=== PATIENT | female | born 1980 | race Caucasian/White ===

== ENCOUNTER → 2016-06-30 | Outpatient (CLI) | payer BC ==
--- NOTE | 2016-06-30 14:27 | REP ---
PELVIC SONOGRAM: HISTORY: Dysmenorrhea. FINDINGS: Transabdominal and transvaginal scanning are performed. Uterus is rather enlarged at 11.8 x 7.0 x 8.2 cm in overall dimension. Endometrium is obscured. Fibroid is seen measuring 4.3 x 4.2 x 3.5 cm. Remainder the myometrium is heterogeneous. Nabothian cysts are noted. Visualized bladder franco are smooth. Normal ovaries are seen bilaterally. Right ovary dimensions are 3.3 x 1.8 x 2.1 cm. Left ovary measures 2.2 x 1.8 x 2.1 cm. Doppler flow is normal both ovaries. IMPRESSION: Enlarged fibroid uterus. 4.3 cm fibroid in the fundus anteriorly. Endometrium is obscured. No ovarian abnormality seen. Signed by Dwayne Ruano MD 06/30/2016 03:34 P
== END ==
LOC: M RAD 11:37
PROVIDERS: ATTEND Nurse Practitioner Women's Health
DX: N92.0 Excessive and frequent menstruation with regular cycle (principal); N94.4 Primary dysmenorrhea; D25.9 Leiomyoma of uterus, unspecified

== ENCOUNTER → 2016-11-12 | Outpatient (CLI) | payer BC, OTHER, SELFPAY ==
[2016-11-12 13:22] LABS: MEAN CORPUSCULAR HGB CONC 33.7 g/dl (32.0-36.5); MEAN CORPUSCULAR VOLUME 94.8 fl (80.0-96.0); RED CELL DISTRIBUTION WIDTH 13.4 % (11.5-14.5); WHITE BLOOD COUNT 6.2 K/mm3 (4.0-10.0)
[2016-11-12 14:02] LABS: ALBUMIN 3.7 GM/DL (3.2-5.2); ALBUMIN/GLOBULIN RATIO 1.09 (1.00-1.93); ALKALINE PHOSPHATASE 61 U/L (45-117); ALT/SGPT 36 U/L (12-78); ANION GAP 7 MEQ/L (8-16); AST/SGOT 12 U/L (15-37); BILIRUBIN,TOTAL 0.1 MG/DL (0.2-1.0); BLOOD UREA NITROGEN 16 MG/DL (7-18); CALCIUM LEVEL 8.8 MG/DL (8.5-10.1); CARBON DIOXIDE LEVEL 28 MEQ/L (21-32); CHLORIDE LEVEL 105 MEQ/L (98-107); CHOLESTEROL LEVEL 195 MG/DL (<200); CREATININE FOR GFR 0.67 MG/DL (0.55-1.02); GLOMERULAR FILTRATION RATE > 60.0 (>60); GLUCOSE, FASTING 85 MG/DL (70-105); POTASSIUM SERUM 4.6 MEQ/L (3.5-5.1); SODIUM LEVEL 140 MEQ/L (136-145); TOTAL PROTEIN 7.1 GM/DL (6.4-8.2); TRIGLYCERIDES LEVEL 306 MG/DL (<150)
== END ==
LOC: M WUC 10:27
PROVIDERS: ATTEND Family Medicine
DX: D64.9 Anemia, unspecified (principal); E03.9 Hypothyroidism, unspecified

== ENCOUNTER → 2018-01-04 | Outpatient (CLI) | payer OTHER | LOC: M EKG 14:10 | DX: R00.0 Tachycardia, unspecified (principal); J21.9 Acute bronchiolitis, unspecified | CPT/HCPCS: 71046 ==

== ENCOUNTER → 2018-02-02 | Outpatient (CLI) | payer OTHER | LOC: M WUC 18:03 | DX: R05 Cough (principal) | CPT/HCPCS: 71046 ==

== ENCOUNTER → 2018-08-30 | Outpatient (CLI) | payer OTHER ==
[2018-08-30 17:19] LABS: HEMATOCRIT 42.8 % (36.0-47.0); HEMOGLOBIN 14.3 g/dl (12.0-15.5); MEAN CORPUSCULAR HEMOGLOBIN 31.8 pg (27.0-33.0); MEAN CORPUSCULAR HGB CONC 33.4 g/dl (32.0-36.5); MEAN CORPUSCULAR VOLUME 95.1 fl (80.0-96.0); PLATELET COUNT, AUTOMATED 254 10^3/uL (150-450); WHITE BLOOD COUNT 7.4 10^3/uL (4.0-10.0)
[2018-08-30 17:50] LABS: HEMOGLOBIN A1c 5.6 %
[2018-08-30 18:07] LABS: ALBUMIN 3.9 GM/DL (3.2-5.2); ALT/SGPT 34 U/L (12-78); BILIRUBIN,TOTAL 0.3 MG/DL (0.2-1.0); BLOOD UREA NITROGEN 17 MG/DL (7-18); CALCIUM LEVEL 8.7 MG/DL (8.5-10.1); CARBON DIOXIDE LEVEL 27 MEQ/L (21-32); CHLORIDE LEVEL 106 MEQ/L (98-107); CHOLESTEROL LEVEL 174 MG/DL (<200); CHOLESTEROL RISK RATIO 4.142 (<5); CREATININE FOR GFR 0.64 MG/DL (0.55-1.30); GLOMERULAR FILTRATION RATE > 60.0 (>60); GLUCOSE, FASTING 86 MG/DL (70-100); HDL CHOLESTEROL 42 MG/DL (>40); LDL CHOLESTEROL 120 MG/DL (<100); NON-HDL-C 132 MG/DL; POTASSIUM SERUM 4.7 MEQ/L (3.5-5.1); SODIUM LEVEL 140 MEQ/L (136-145); THYROID STIMULATING HORMONE 0.815 uIU/ML (0.358-3.740); TOTAL T3 104.3 NG/DL (60.0-181.0); TRIGLYCERIDES LEVEL 61 MG/DL (<150)
== END ==
LOC: M WUC 14:39
PROVIDERS: ATTEND Family Medicine
DX: D64.9 Anemia, unspecified (principal); E03.9 Hypothyroidism, unspecified; R53.83 Other fatigue

== ENCOUNTER → 2019-04-11 | Outpatient (CLI) | payer OTHER ==
[2019-04-11 16:20] LABS: BASO % 0.5 % (0.0-1.0); EOS # 0.1 10^3/uL (0.0-0.5); EOS % 1.7 % (0.0-3.0); LYMPH # 1.9 10^3/uL (1.5-5.0); LYMPH % 29.3 % (24.0-44.0); MEAN CORPUSCULAR HEMOGLOBIN 32.5 pg (27.0-33.0); MEAN CORPUSCULAR HGB CONC 33.3 g/dl (32.0-36.5); MEAN CORPUSCULAR VOLUME 97.6 fl (80.0-96.0); MONO # 0.7 10^3/uL (0.0-0.8); MONO % 10.6 % (0.0-5.0); NEUTROPHILS # 3.7 10^3/uL (1.5-8.5); NEUTROPHILS % 56.8 % (36.0-66.0); PLATELET COUNT, AUTOMATED 280 10^3/uL (150-450); RED BLOOD COUNT 4.61 10^6/uL (4.00-5.40); WHITE BLOOD COUNT 6.6 10^3/uL (4.0-10.0)
[2019-04-11 16:27] LABS: ALBUMIN 4.1 GM/DL (3.2-5.2); ALT/SGPT 43 U/L (12-78); BILIRUBIN,TOTAL 0.3 MG/DL (0.2-1.0); BLOOD UREA NITROGEN 18 MG/DL (7-18); CALCIUM LEVEL 9.3 MG/DL (8.5-10.1); CARBON DIOXIDE LEVEL 29 MEQ/L (21-32); CHLORIDE LEVEL 103 MEQ/L (98-107); CREATININE FOR GFR 0.79 MG/DL (0.55-1.30); GLOMERULAR FILTRATION RATE > 60.0 (>60); GLUCOSE, FASTING 132 MG/DL (70-100); LIPASE 123 U/L (73-393); POTASSIUM SERUM 3.9 MEQ/L (3.5-5.1); SODIUM LEVEL 139 MEQ/L (136-145); TOTAL PROTEIN 7.8 GM/DL (6.4-8.2)
== END ==
LOC: M WUC 14:15
PROVIDERS: ATTEND Physician Assistant
DX: R10.9 Unspecified abdominal pain (principal)

== ENCOUNTER → 2019-04-11 | Outpatient (REF) | payer OTHER | LOC: M LAB REF 16:05 | PROVIDERS: ATTEND Physician Assistant | DX: R10.9 Unspecified abdominal pain (principal) ==

== ENCOUNTER → 2019-04-14 | Outpatient (CLI) | payer OTHER ==
--- NOTE | 2019-04-14 09:12 | REP ---
Clinical: Right upper quadrant pain. Technique: Real time blanco scale ultrasound examination using curved array transducer. Findings: Liver demonstrates increased echotexture with poor through transmission suggesting fatty infiltration. Focal fatty sparing surrounding the gallbladder fossa noted. No focal hepatic lesion identified. Gallbladder is normal and without gallstones, wall thickening, or pericholecystic fluid. No biliary ductal dilatation is appreciated and the common bile duct measures 6 mm diameter. Right kidney is normal in reniform shape without hydronephrosis and measures 11.7 x 4.7 x 4.7 cm. No ascites. Impression: Hepatic steatosis. Electronically Signed by Thomas Nolasco MD 04/14/2019 09:03 A
== END ==
LOC: M RAD 07:39
PROVIDERS: ATTEND Physician Assistant
DX: R10.811 Right upper quadrant abdominal tenderness (principal); K76.0 Fatty (change of) liver, not elsewhere classified

== ENCOUNTER → 2019-08-31 | Outpatient (CLI) | payer OTHER ==
[2019-08-31 14:22] LABS: HEMATOCRIT 44.2 % (36.0-47.0); HEMOGLOBIN 14.7 g/dl (12.0-15.5); MEAN CORPUSCULAR HEMOGLOBIN 31.8 pg (27.0-33.0); MEAN CORPUSCULAR HGB CONC 33.3 g/dl (32.0-36.5); MEAN CORPUSCULAR VOLUME 95.7 fl (80.0-96.0); PLATELET COUNT, AUTOMATED 240 10^3/uL (150-450); RED BLOOD COUNT 4.62 10^6/uL (4.00-5.40); WHITE BLOOD COUNT 4.9 10^3/uL (4.0-10.0)
[2019-08-31 14:41] LABS: HEMOGLOBIN A1c 5.7 %
[2019-08-31 14:51] LABS: ALBUMIN 3.9 GM/DL (3.2-5.2); ALT/SGPT 33 U/L (12-78); BILIRUBIN,TOTAL 0.5 MG/DL (0.2-1.0); BLOOD UREA NITROGEN 13 MG/DL (7-18); CALCIUM LEVEL 8.9 MG/DL (8.5-10.1); CARBON DIOXIDE LEVEL 29 MEQ/L (21-32); CHLORIDE LEVEL 107 MEQ/L (98-107); CHOLESTEROL LEVEL 185 MG/DL (<200); CHOLESTEROL RISK RATIO 4.204 (<5); CREATININE FOR GFR 0.76 MG/DL (0.55-1.30); GLOMERULAR FILTRATION RATE > 60.0 (>60); GLUCOSE, FASTING 90 MG/DL (70-100); HDL CHOLESTEROL 44 MG/DL (>40); LDL CHOLESTEROL 120 MG/DL (<100); NON-HDL-C 141 MG/DL; POTASSIUM SERUM 4.2 MEQ/L (3.5-5.1); SODIUM LEVEL 141 MEQ/L (136-145); TRIGLYCERIDES LEVEL 107 MG/DL (<150)
[2019-08-31 14:52] LABS: TOTAL 25(OH) VITAMIN D 83.8 NG/ML (30.0-100.0)
--- NOTE | 2019-08-31 20:01 | REP ---
Clinical: Hypothyroidism, anemia and fatigue. Technique: PA and lateral. Comparison: 02/02/2018. Findings: Mediastinum and cardiac silhouette normal. Lung salcido clear. No acute consolidation, effusion, or pneumothorax. Skeletal structures are intact. Impression: Normal chest x-ray. No acute cardiopulmonary process appreciated. Electronically Signed by Thomas Nolasco MD 08/31/2019 07:52 P
--- NOTE | 2019-09-01 18:49 | ECGEPIP ---
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
== END ==
LOC: M LAB 13:45
PROVIDERS: ATTEND Family Medicine
DX: E03.9 Hypothyroidism, unspecified (principal); R53.83 Other fatigue; D64.9 Anemia, unspecified

== ENCOUNTER → 2019-09-12 | Outpatient (CLI) | payer OTHER ==
--- NOTE | 2019-09-12 15:23 | REPMRS ---
Patient History The patient states she had a clinical breast exam in February 2019. Patient is nulliparous. No known family history of cancer. Took hormonal contraceptives for 5 years beginning at age 18. Digital Woman Screen Mammo: September 12, 2019 - Exam #: [id number] Bilateral CC and MLO view(s) were taken. Technologist: Barbara Lopez, RT No prior studies available for comparison. FINDINGS: The breast tissue is heterogeneously dense. This may lower the sensitivity of mammography. There is no evidence of dominant mass, architectural distortion, or grouped microcalcification typical of malignancy. 3-D tomosynthesis shows no additional findings. Assessment: BI-RADS/ACR category 1 mammogram. Negative Mammogram. Recommendation Routine screening mammogram of both breasts in 1 year (for women over age 40). This patient's Lifetime Breast Cancer RIsk is estimated at 13.0 %. This mammogram was interpreted with the aid of an FDA-approved computer-aided dectection system. Electronically Signed By: Sergio Ruano MD 09/12/19 6750
== END ==
LOC: M WHC 10:17
PROVIDERS: ATTEND Family Medicine
DX: Z12.31 Encounter for screening mammogram for malignant neoplasm of breast (principal); R92.2 Inconclusive mammogram

== ENCOUNTER → 2019-12-28 | Outpatient (CLI) | payer OTHER ==
[2019-12-28 08:41] LABS: HEMATOCRIT 46.9 % (36.0-47.0); HEMOGLOBIN 15.4 g/dl (12.0-15.5); MEAN CORPUSCULAR HGB CONC 32.8 g/dl (32.0-36.5); MEAN CORPUSCULAR VOLUME 97.3 fl (80.0-96.0); PLATELET COUNT, AUTOMATED 243 10^3/uL (150-450); RED BLOOD COUNT 4.82 10^6/uL (4.00-5.40); WHITE BLOOD COUNT 7.8 10^3/uL (4.0-10.0)
[2019-12-28 09:17] LABS: ALBUMIN 3.8 GM/DL (3.2-5.2); ALT/SGPT 33 U/L (12-78); BILIRUBIN,TOTAL 0.3 MG/DL (0.2-1.0); BLOOD UREA NITROGEN 16 MG/DL (7-18); CALCIUM LEVEL 9.4 MG/DL (8.5-10.1); CARBON DIOXIDE LEVEL 29 MEQ/L (21-32); CHLORIDE LEVEL 107 MEQ/L (98-107); CHOLESTEROL LEVEL 147 MG/DL (<200); CHOLESTEROL RISK RATIO 2.882 (<5); CREATININE FOR GFR 0.72 MG/DL (0.55-1.30); GLOMERULAR FILTRATION RATE > 60.0 (>60); GLUCOSE, FASTING 88 MG/DL (70-100); HDL CHOLESTEROL 51 MG/DL (>40); LDL CHOLESTEROL 64 MG/DL (<100); NON-HDL-C 96 MG/DL; POTASSIUM SERUM 4.5 MEQ/L (3.5-5.1); SODIUM LEVEL 143 MEQ/L (136-145); TOTAL PROTEIN 7.6 GM/DL (6.4-8.2); TRIGLYCERIDES LEVEL 162 MG/DL (<150)
[2019-12-28 11:13] LABS: HEMOGLOBIN A1c 5.2 %
[2019-12-28 11:31] LABS: TOTAL 25(OH) VITAMIN D 64.5 NG/ML (30.0-100.0)
--- NOTE | 2019-12-29 14:50 | ECGEPIP ---
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 Marginal right precordial T wave abnormalities Slightly slower heart rate but otherwise unchanged from 08/31/19 Electronically Signed on 12-29-2019 14:49:34 EDT by Chuy Sorensen
== END ==
LOC: M LAB 08:02
PROVIDERS: ATTEND Family Medicine
DX: I10 Essential (primary) hypertension (principal)

== ENCOUNTER → 2020-08-13 | Outpatient (CLI) | payer OTHER ==
[2020-08-13 12:17] LABS: HEMATOCRIT 42.5 % (36.0-47.0); HEMOGLOBIN 13.9 g/dl (12.0-15.5); MEAN CORPUSCULAR HEMOGLOBIN 31.4 pg (27.0-33.0); MEAN CORPUSCULAR HGB CONC 32.7 g/dl (32.0-36.5); MEAN CORPUSCULAR VOLUME 96.2 fl (80.0-96.0); PLATELET COUNT, AUTOMATED 254 10^3/uL (150-450); RED BLOOD COUNT 4.42 10^6/uL (4.00-5.40); WHITE BLOOD COUNT 5.8 10^3/uL (4.0-10.0)
--- NOTE | 2020-08-13 12:29 | REP ---
INDICATION: HTN,FATIGUE, LAB 1ST EKG 2ND THEN XR COMPARISON: 02/02/2018, 08/31/2019 TECHNIQUE: PA and lateral. FINDINGS: The mediastinum and cardiac silhouette are normal. The lung salcido are clear and without acute consolidation, effusion, or pneumothorax. The skeletal structures are intact and normal. IMPRESSION: No acute cardiopulmonary process. <Electronically signed by Thomas Nolasco > 08/13/20 [id number]
[2020-08-13 12:50] LABS: ALBUMIN 4.1 GM/DL (3.2-5.2); ALT/SGPT 33 U/L (12-78); BILIRUBIN,TOTAL 0.5 MG/DL (0.2-1.0); BLOOD UREA NITROGEN 16 MG/DL (7-18); CARBON DIOXIDE LEVEL 29 MEQ/L (21-32); CHLORIDE LEVEL 105 MEQ/L (98-107); CHOLESTEROL LEVEL 103 MG/DL (<200); CHOLESTEROL RISK RATIO 2.641 (<5); CREATININE FOR GFR 0.69 MG/DL (0.55-1.30); GLOMERULAR FILTRATION RATE > 60.0 (>58); GLUCOSE, FASTING 93 MG/DL (70-100); HDL CHOLESTEROL 39 MG/DL (>40); LDL CHOLESTEROL 55 MG/DL (<100); NON-HDL-C 64 MG/DL; POTASSIUM SERUM 4.2 MEQ/L (3.5-5.1); SODIUM LEVEL 138 MEQ/L (136-145); THYROID STIMULATING HORMONE 0.663 uIU/ML (0.358-3.740); TOTAL PROTEIN 7.1 GM/DL (6.4-8.2); TRIGLYCERIDES LEVEL 46 MG/DL (<150)
[2020-08-13 12:55] LABS: TOTAL 25(OH) VITAMIN D 95.1 NG/ML (30.0-100.0)
[2020-08-13 13:59] LABS: HEMOGLOBIN A1c 5.4 %
--- NOTE | 2020-08-13 19:25 | ECGEPIP ---
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
== END ==
LOC: M LAB 11:15
PROVIDERS: ATTEND Family Medicine
DX: R53.83 Other fatigue (principal); I10 Essential (primary) hypertension; E03.9 Hypothyroidism, unspecified

== ENCOUNTER → 2020-10-01 | Outpatient (CLI) | payer OTHER ==
--- NOTE | 2020-10-01 14:07 | REPMRS ---
Patient History The patient states she has not had a clinical breast exam in over a year. Patient is nulliparous. Family history of prostate cancer at age 73 in maternal uncle. Took hormonal contraceptives for 5 years beginning at age 18. Digital Woman Screen Mammo: October 01, 2020 - Exam #: [id number] Bilateral CC and MLO view(s) were taken. Technologist: Ericka Sorensen, Technologist Prior study comparison: September 12, 2019, bilateral digital woman screen mammo performed at [facility]. FINDINGS: There are scattered fibroglandular densities. The Volpara volumetric breast density category is: B. There is a moderate amount of residual fibroglandular tissue which is fairly symmetric. There is no interval development of dominant mass, architectural distortion, or grouped microcalcification typical of malignancy. There has been no change in the appearance of the mammogram from the prior studies. 3-D tomosynthesis shows no additional findings. Assessment: BI-RADS/ACR category 1 mammogram. Negative Mammogram. Recommendation Routine screening mammogram of both breasts in 1 year (for women over age 40). This patient's [facility] Lifetime Breast Cancer RIsk is estimated at 12.9 %. This mammogram was interpreted with the aid of an FDA-approved computer-aided dectection system. Electronically Signed By: Sergio Ruano MD 10/01/20 8409
== END ==
LOC: M WHC 12:19
PROVIDERS: ATTEND Family Medicine
DX: Z12.31 Encounter for screening mammogram for malignant neoplasm of breast (principal); Z80.42 Family history of malignant neoplasm of prostate

== ENCOUNTER → 2021-05-11 | Outpatient (CLI) | payer OTHER ==
[~2021-05-11] MED LIST: ERGO500029 PO; EUTH88TA PO; LISI10TA22 PO; OMEP-221 PO; SIMV20TA22 PO
== END ==
LOC: M LABSMTC 09:33
PROVIDERS: ATTEND Anesthesiology
DX: Z11.52 Encounter for screening for COVID-19 (principal); Z20.828 Contact with and (suspected) exposure to other viral communicable diseases

== ENCOUNTER 2021-05-15 06:30 | Day surgery (SDC) | payer OTHER ==
[~2021-05-15] VITALS: Ht 172.7 cm; Wt 87.5 kg
[~2021-05-15 06:30] MED LIST changes: +NS 1,000 ML IV ONE
--- OUTSIDE RECORDS SUMMARY | 2021-05-15 06:34 | CCD | Continuity of Care Document ---
Author Author Natalia MACIEL MD Organization Unknown Address [address] [place] [address] Phone [phone] Care Team Providers Care Prosthodontist/Owner Name Role Phone Guanaco Menard MD AUTM [phone] Problems Active Problems Provider Date Essential hypertension Aniceto Maciel MD Onset: 12/10/2020 Pure hypercholesterolemia Aniceto Maciel MD Onset: 021 Social History Type Date Description Comments Sex Unknown Tobacco Use Start: Unknown Patient has never smoked Allergies, Adverse Reactions, Alerts Description No Known Drug Allergies Medications Active Medications SIG Qnty Indications Ordering Provide r Date Simvastatin 20mg Tablets Unknown Lisinopril 10mg Tablets Unknown Levothyroxine Sodium 88mcg Capsules Unknown Vitamin D2 2000Unit Tablets Unknown Immunizations Description No Information Available Vital Signs Date Vital Result Comment 02/12/2021 1:04pm Height 68 inches 5'8" Weight 186.25 lb BMI (Body Mass Index) 28.3 kg/m2 12/10/2020 10:52am Body Temperature 97.1 F Height 68 inches 5'8" Weight 186.25 lb BMI (Body Mass Index) 28.3 kg/m2 Results Description No Information Available Procedures Date Code Description Status 03/11/2021 73751 Office/Outpatient Established Lo w MDM 20-29 Min Completed 02/12/2021 98032 Office/Outpatient New Moderate M DM 45-59 Minutes Completed 02/12/2021 42600 Nerve Conduction 13+ Studies Com pleted 02/12/2021 17834 Needle Electromyography,Complete Five Or More Muscles Studied Completed 12/10/2020 77437 Office/Outpatient New Low MDM 30 -44 Minutes Completed 12/10/2020 36639 X-Ray Spine Cervical 6 Or More V iews Completed Medical Devices Description No Information Available Encounters Type Date Location Provider Dx Diagnosis Office Visit 03/11/2021 3:30p Aline Maciel MD G56.01 Carpal tunnel syndrome, right upper limb G56.21 Lesion of ulnar nerve, right upper limb Office Visit 02/12/2021 1:00p Aline Krishnan MD M50.322 Other cervical disc degeneration at C5-C6 level M50.323 Other cervical disc degenera tion at C6-C7 level R20.2 Paresthesia of skin G56.21 Lesion of ulnar nerve, right upper limb M47.892 Other spondylosis, cervical region Office Visit 12/10/2020 10:30a Aline Maciel MD G56.03 Carpal tunnel syndrome, bilateral upper limbs G56.22 Lesion of ulnar nerve, left upper limb M50.30 Other cervical disc degenera tion, unsp cervical region Assessments Date Code Description Provider 03/11/2021 G56.01 Carpal tunnel syndrome, right up per limb Aniceto Maciel MD 03/11/2021 G56.21 Lesion of ulnar nerve, right upp er limb Aniceto Maciel MD 02/12/2021 M50.322 Other cervical disc degeneration at C5-C6 level Sherman Krishnan MD 02/12/2021 M50.323 Other cervical disc degeneration at C6-C7 level Sherman Krishnan MD 02/12/2021 R20.2 Paresthesia of skin Sherman moore MD 02/12/2021 G56.21 Lesion of ulnar nerve, right upp er limb Sherman Krishnan MD 02/12/2021 M47.892 Other spondylosis, cervical christopher on Sherman Krishnan MD 12/10/2020 G56.03 Carpal tunnel syndrome, bilatera l upper limbs Aniceto Maciel MD 12/10/2020 G56.03 Carpal tunnel syndrome, bilatera l upper limbs Aniceto Maciel MD 12/10/2020 G56.22 Lesion of ulnar nerve, left uppe r limb Aniceto Maciel MD 12/10/2020 M50.30 Other cervical disc degeneration , unspecified cervical region Aniceto Maciel MD Plan of Treatment 03/11/2021 - Aniceto Maciel MD* G56.01 Carpal tunnel syndrome, right upper limb * Follow up:* beginning of spring for right wrist eval with [facility] * G56.21 Lesion of ulnar nerve, right upper limb Functional Status Description No Information Available Mental Status Description No Information Available Referrals Refer to Dr Reason for Referral Status Appt Date Aniceto Maciel MD EMG NO AUTH REQUIRED TO SCHEDULING NT Creat ed [address] [place] [address], [address] [place] [address] [phone]
--- OUTSIDE RECORDS SUMMARY | 2021-05-15 06:34 | CCD | Continuity of Care Document ---
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 [employer] Name Role Phone Guanaco Menard MD AUTM [phone] Problems Active Problems Provider Date Essential hypertension [...] Available Procedures Date Code Description Status 03/11/2021 35926 Office/Outpatient Established Lo w MDM 20-29 Min Completed 02/12/2021 27447 Office/Outpatient New Moderate M DM 45-59 Minutes Completed 02/12/2021 31815 Nerve Conduction 13+ Studies Com pleted 02/12/2021 99560 Needle Electromyography,Complete Five Or More Muscles Studied Completed 12/10/2020 55480 Office/Outpatient New Low MDM 30 -44 Minutes Completed 12/10/2020 60421 X-Ray Spine Cervical 6 Or More V [...] Krishnan MD 02/12/2021 M47.892 Other spondylosis, cervical christopehr on Sherman Krishnan MD 12/10/2020 G56.03 Carpal [...] AUTH REQUIRED TO SCHEDULING NT Creat ed [address] [place] [address], [address] [place] [address] [phone]
--- OUTSIDE RECORDS SUMMARY | 2021-05-15 06:34 | CCD | Continuity of Care Document ---
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] AUTH REQUIRED TO SCHEDULING NT Creat ed [address] [place] [address], [address] [place] [address] [phone]
--- OUTSIDE RECORDS SUMMARY | 2021-05-15 06:34 | CCD | Continuity of Care Document ---
Author Author Natlaia PORTER M.D Organization Unknown Address [address] [place] [address] Phone [phone] Care Team Providers Care Butter Maker Name Role Phone Guanaco Menard M.D. AUTM [phone] Problems Active Problems Provider Date Hemorrhage of rectum and anus Jose Porter M.D. Onset : 03/19/2021 Social History Type Date Description Comments Sex Unknown ETOH Use Occasionally Tobacco Use Start: Unknown Patient has never smoked Allergies and adverse reactions Description No Known Drug Allergies Medications Active Medications SIG Qnty Indications Ordering Provide r Date Sutab [id number] Tablets as directed 1box Jose Porter M.D. 03/19/[address] 1 cap by mouth every morning 90caps Jose Porter M.D. 021 Gaviscon Extra Strength 160-105mg Chewtabs 1 tab by mouth four times a day before meals,and at bedtime 360u nits Jose Porter M.D. 03/19/2021 Simvastatin 20mg Tablets Unknown Levothyroxine Sodium 88mcg Capsules Unknown Vitamin D2 2000Unit Tablets Unknown Lisinopril 10mg Tablets Unknown Immunizations Description No Information Available Vital Signs Date Vital Result Comment 03/19/2021 3:28pm Height 68.5 inches 5'8.50" Weight 196.00 lb BP Systolic 128 mmHg BP Diastolic 72 mmHg Heart Rate 67 /min BMI (Body Mass Index) 29.4 kg/m2 Weight 88.906 kg Body Temperature 97.3 F Results Description No Information Available Procedures Date Code Description Status 03/19/2021 15728 Office/Outpatient New Moderate M DM 45-59 Minutes Completed Medical Devices Description No Information Available Encounters Type Date Location Provider Dx Diagnosis Office Visit 03/19/2021 2:45p Main Office Jose Porter M.D. Z 12.11 Encounter for screening for malignant neoplasm of colon K21.9 Gastro-esophageal reflux dis ease without esophagitis Assessments Date Code Description Provider 03/19/2021 Z12.11 Screening for malignant neoplasm of colon Jose Porter M.D. 03/19/2021 K21.9 Gastroesophageal reflux disease Jose Porter M.D. Plan of Treatment Future Appointment(s):* 05/01/2021 6:00 am - Adonay at Main Office * 05/15/2021 8:15 am - Jose Porter M.D. at Main Office 03/19/2021 - Jose Porter M.D.* Z12.11 Screening for malignant neoplasm of colon* Comments:* 40 yo wf who presents for a colonoscopy due to a h/o rectal bleeding/rectal fissure, egd for heartburn. No c/o abdominal pain, weight loss, change in bowel habits, no rectal bleeding for 5 months. No family h/o colon cancer. No h/o chest pain, or sob. Plan:1.Schedule patient for a colonoscopy + egd2.Informed consent given to the patient.3.Pt. advised to stop aspirin,plavix, and anticoagulants at least 3 to 7 days prior to the procedure.4. Omeprazole 40 mgs po qam5. Gaviscon prn * K21.9 Gastroesophageal reflux disease* Comments:* As above. Functional Status Description No Information Available Mental Status Description No Information Available Referrals Description No Information Available
--- OUTSIDE RECORDS SUMMARY | 2021-05-15 06:34 | CCD ---
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 Name Role Phone [id number] Manas RENETTA [id number] Unavailable Unavailable Suha Porter MD Unavailable Unavailable Suha Porter MD Unavailable Unavailable Suha Porter MD Unavailable Unavailable Suha Porter MD Unavailable Unavailable Suha Porter MD Unavailable Unavailable Suha Porter MD Unavailable Unavailable Suha Porter MD Unavailable Unavailable Suha Porter MD Unavailable Unavailable Suha Porter MD Unavailable Unavailable Suha Porter MD Unavailable Unavailable Suha Porter MD Unavailable Unavailable Suha Porter MD Unavailable Unavailable Suha Porter MD Unavailable Unavailable Suha Porter MD Unavailable Unavailable Suha Porter MD Unavailable Unavailable Suha Porter MD Unavailable Unavailable Suha Porter MD Unavailable Unavailable Suha Porter MD Unavailable Unavailable Suha Porter MD Unavailable Unavailable Suha Porter MD Unavailable Unavailable Suha Porter MD Unavailable Unavailable Suha Porter MD Unavailable Unavailable Suha Porter MD Unavailable Unavailable Suha Porter MD Unavailable Unavailable Suha Porter MD Unavailable Unavailable German, S Jose MD Unavailable Unavailable German, S Jose MD Unavailable Unavailable German, S Jose MD Unavailable Unavailable German, S Jose MD Unavailable Unavailable German, S Jose MD Unavailable Unavailable German, S Jose MD Unavailable Unavailable German, S Jose MD Unavailable Unavailable German, S Jose MD Unavailable Unavailable German, S Jose MD Unavailable Unavailable German, S Jose MD Unavailable Unavailable German, S Jose MD Unavailable Unavailable German, S Jose MD Unavailable Unavailable German, S Jose MD Unavailable Unavailable German, S Jose MD Unavailable Unavailable German, S Jose MD Unavailable Unavailable German, S Jose MD Unavailable Unavailable German, S Jose MD Unavailable Unavailable German, S Jose MD Unavailable Unavailable German, S Jose MD Unavailable Unavailable German, S Jose MD Unavailable Unavailable German, S Jose MD Unavailable Unavailable German, S Jose MD Unavailable Unavailable German, S Jose MD Unavailable Unavailable German, S Jose MD Unavailable Unavailable German, S Jose MD Unavailable Unavailable German, S Jose MD Unavailable Unavailable Krishnan, Sherman Unavailable Unavailable Krishnan, Sherman Unavailable Unavailable Krishnan, Sherman Unavailable Unavailable Krishnan, Sherman Unavailable Unavailable Krishnan, Sherman Unavailable Unavailable Krishnan, Sherman Unavailable Unavailable Krishnan, Sherman Unavailable Unavailable Krishnan, Sherman Unavailable Unavailable Krishnan, Sherman Unavailable Unavailable Krishnan, Sherman Unavailable Unavailable Krishnan, Sherman Unavailable Unavailable Krishnan, Sherman Unavailable Unavailable Krishnan, Sherman Unavailable Unavailable Krishnan, Sherman Unavailable Unavailable Krishnan, Sherman Unavailable Unavailable Krishnan, Sherman Unavailable Unavailable Krishnan, Sherman Unavailable Unavailable Krishnan, Sherman Unavailable Unavailable Krishnan, Sherman Unavailable Unavailable Krishnan, Sherman Unavailable Unavailable Krishnan, Sherman Unavailable Unavailable Krishnan, Sherman Unavailable Unavailable Krishnan, Sherman Unavailable Unavailable Krishnan, Sherman Unavailable Unavailable Krishnan, Sherman Unavailable Unavailable Krishnan, Sherman Unavailable Unavailable Krishnan, Sherman Unavailable Unavailable Krishnan, Sherman Unavailable Unavailable Krishnan, Sherman Unavailable Unavailable Krishnan, Sherman Unavailable Unavailable Krishnan, Sherman Unavailable Unavailable Krishnan, Sherman Unavailable Unavailable Krishnan, Sherman Unavailable Unavailable Krishnan, Sherman Unavailable Unavailable Krishnan, Sherman Unavailable Unavailable Krishnan, Sherman Unavailable Unavailable Krishnan, Sherman Unavailable Unavailable Krishnan, Sherman Unavailable Unavailable Krishnan, Sherman Unavailable Unavailable Rkishnan, Sherman Unavailable Unavailable Krishnan, Sherman Unavailable Unavailable Krishnan, Sherman Unavailable Unavailable Krishnan, Sherman Unavailable Unavailable Krishnan, Sherman Unavailable Unavailable Krishnan, Sherman Unavailable Unavailable Manas Kaur MD Unavailable Unavailable Manas Kaur MD Unavailable Unavailable Manas Kaur MD Unavailable Unavailable Manas Kaur MD Unavailable Unavailable Manas Kaur MD Unavailable Unavailable Kaur, L Aniceto LEACH Unavailable Unavailable Kaur, L Aniceto LEACH Unavailable Unavailable Kaur, L Aniceto LEACH Unavailable Unavailable Kaur, L Aniceto LEACH Unavailable Unavailable Kaur, L Ainceto LEACH Unavailable Unavailable Kaur, L Aniceto LEACH Unavailable Unavailable Kaur, L Aniceto LEACH Unavailable Unavailable Kaur, L Aniceto LEACH Unavailable Unavailable Kaur, L Aniceto LEACH Unavailable Unavailable Kaur, L Aniceto LEACH Unavailable Unavailable Kaur, L Aniceto LEACH Unavailable Unavailable Kaur, L Aniceto LEACH Unavailable Unavailable Kaur, L Aniceto LEACH Unavailable Unavailable Kaur, L Aniceto LEACH Unavailable Unavailable Kaur, L Aniceto LEACH Unavailable Unavailable Kaur, L Aniceto LEACH Unavailable Unavailable Kaur, L Aniceto LEACH Unavailable Unavailable Kaur, L Aniceto LEACH Unavailable Unavailable Kaur, L Aniceto LEACH Unavailable Unavailable Kaur, L Aniceto LEACH Unavailable Unavailable Kaur, L Aniceto LEACH Unavailable Unavailable Kaur, L Aniceto LEACH Unavailable Unavailable Kaur, L Aniceto LEACH Unavailable Unavailable Kaur, L Aniceto LEACH Unavailable Unavailable Kaur, Manas Moreland MD Unavailable Unavailable Kaur, L Aniceto LEACH Unavailable Unavailable Kaur, L Aniceto LEACH Unavailable Unavailable Akur, L Aniceto LEACH Unavailable Unavailable Kaur, L Aniceto LEACH Unavailable Unavailable Kaur, L Aniceto LEACH Unavailable Unavailable Kaur, L Aniceto LEACH Unavailable Unavailable Kaur, L Aniceto LEACH Unavailable Unavailable Kaur, Manas Moreland MD Unavailable Unavailable Kaur, L Aniceto LEACH Unavailable Unavailable Kaur, Manas Moreland MD Unavailable Unavailable Kaur, Manas Moreland MD Unavailable Unavailable Kaur, L Aniceto LEACH Unavailable Unavailable Kaur, Manas Moreland MD Unavailable Unavailable Kaur, Manas Moreland MD Unavailable Unavailable Kaur, Manas Moreland MD Unavailable Unavailable Kaur, Manas Moreland MD Unavailable Unavailable Kaur, Manas Moreland MD Unavailable Unavailable Kaur, Manas Moreland MD Unavailable Unavailable Kaur, Manas Moreland MD Unavailable Unavailable Kaur, L Aniceto LEACH Unavailable Unavailable Gere, Renetta Unavailable Unavailable Gere, Renetta Unavailable Unavailable Gere, Renetta Unavailable Unavailable Gere, Renetta Unavailable Unavailable Gere, Renetta Unavailable Unavailable Gere, Renetta Unavailable Unavailable Gere, Renetta Unavailable Unavailable Gere, Renetta Unavailable Unavailable Gere, Renetta Unavailable Unavailable Gere, Renetta Unavailable Unavailable Gere, Renetta Unavailable Unavailable Gere, Renetta Unavailable Unavailable Gere, Renetta Unavailable Unavailable Gere, Renetta Unavailable Unavailable Gere, Renetta Unavailable Unavailable Gere, Renetta Unavailable Unavailable Re-disclosure Warning The records that you are about to access may contain information from federally-assisted alcohol or drug abuse programs. If such information is present, then the following federally mandated warning applies: This information has been disclosed to you from records protected by federal confidentiality rules (42 CFR part 2). The federal rules prohibit you from making any further disclosure of this information unless further disclosure is expressly permitted by the written consent of the person to whom it pertains or as otherwise permitted by 42 CFR part 2. A general authorization for the release of medical or other information is NOT sufficient for this purpose. The Federal rules restrict any use of the information to criminally investigate or prosecute any alcohol or drug abuse patient.The records that you are about to access may contain highly sensitive health information, the redisclosure of which is protected by Article 27-F of the [facility] Public Health law. If you continue you may have access to information: Regarding HIV / AIDS; Provided by facilities licensed or operated by the [facility] Office of Mental Health; or Provided by the [facility] Office for People With Developmental Disabilities. If such information is present, then the following [facility] mandated warning applies: This information has been disclosed to you from confidential records which are protected by state law. State law prohibits you from making any further disclosure of this information without the specific written consent of the person to whom it pertains, or as otherwise permitted by law. Any unauthorized further disclosure in violation of state law may result in a fine or residential sentence or both. A general authorization for the release of medical or other information is NOT sufficient authorization for further disc losure. Allergies and Adverse Reactions Type Description Substance Reaction Status Data Source(s ) Food allergy MEREDITH-IN FOOD MEREDITH-IN FOOD [facility] Family History Family Member Name Family Member Gender Family Member Status Date o f Status Description Data Source(s) Unknown Female Problem [facility] ([facility]) Unknown Unknown Problem [facility] ([facility] Unknown Unknown Problem [facility] ([facility]) father Encounters Encounter Providers Location Date Indications Data Source(s ) Outpatient Attender: RENETTA DUPREE [id number]: Renetta Dupree 04/22/2022 12:00:00 AM [facility] Outpatient Attender: RENETTA DUPREE [id number]: Renetta Pateldmitter: RENETTA DUPREE [id number] 04/09/2021 12:00:00 AM EDT - 04/10/2021 12:00:00 AM EDT [facility] Outpatient Attender: Jose Porter MD Main Office 03/19/2021 02:45:00 PM EDT [facility] ([facility]) OFFICE OUTPATIENT VISIT 15 MINUTES Attender: Aniceto Kaur MD Phys ical Therapy 03/11/2021 03:30:00 PM EDT [facility] ([facility]) Outpatient Attender: Sherman Krishnan Physical Therapy 02/12/2021 01:00:0 0 PM EDT [facility] ([facility]) OFFICE OUTPATIENT NEW 30 MINUTES Attender: Aniceto Kaur MD Physic al Therapy 12/10/2020 10:30:00 AM EDT [facility] ([facility]) Immunizations Vaccine Date Status Description Data Source(s) COVID-19 VACCINE Pfizer 09/09/2020 12:00:00 AM EDT completed [facility] Vaccine Series Complete: YESThis Data wa s Submitted to [facility] Via NI. COVID-19 VACCINE Pfizer 08/19/2020 12:00:00 AM EST completed [facility] Vaccine Series Complete: NOThis Data was Submitted to [facility] Via NI. Medications Medication Brand Name Start Date Product Form Dose Route Admi nistrative Instructions Pharmacy Instructions Status Indications Reaction Description Data Source(s) Sutab Sutab 03/19/2021 12:00:00 AM EDT active [facility] ([facility]) Omeprazole 40 MG Delayed Release Oral Capsule Omeprazole 03/19/2021 12:00:00 AM EDT ORAL active [facility]) Aluminum Hydroxide 160 MG / magnesium carbonate 105 MG Chewable Tablet Gaviscon Extra Strength 03/19/2021 12:00:00 AM EDT ORAL active [facility] ([facility]) Insurance Providers Payer name Policy type / Coverage type Policy ID Covered alliance party ID Covered alliance party's relationship to moseley Policy [place] Plan Information MVP (pr) Commercial [id number] Self HMO BLUE [id number] SP [id number] [facility] MEDICAID [id number] Jolynn [id number] [facility] [place] [id number] Self [id number] [facility] [id number] S [id number] [facility] Health Maintenance [facility] ([facility]) [id number] Self [id number] [facility] [id number] SP [id number] SELF PAY ONLY UNAVAILABLE UNAV AILABLE Excellus BCBS Medigap Part B [id number] Self [id number] Medicaid [place] Medicaid [id number] Self BCBS OF [place] 306/806 [id number] SP [id number] BCBS/Excellus Commercial [id number] Self [facility] PHY [id number] SP [id number] [facility] PHY [id number] SP [id number] SELF PAY UNAVAILABLE SP UNAVAILA [employer] [employer] INS UNAVAILABLE UNAVAILABLE [facility] [id number] SP [id number] [facility] JEANCARLOS [id number] S [id number] [facility](MCAID) O [id number] S [id number] [facility] Maintenance Organization ([facility]) [id number] Self [id number] Problems, Conditions, and Diagnoses Code Display Name Description Problem Type Effective Dates Data Source(s) 235457248 Hemorrhage of rectum and anus Hemorrhage of rectum and anus Problem 03/19/2021 12:00:00 AM EDT [facility] ([facility]) [id number] Pure hypercholesterolemia Pure hypercholesterolemia Pr oblem 12/10/2020 12:00:00 AM EDT [facility] ([facility] [id number] Essential hypertension Essential hypertension Problem 12/10/2020 12:00:00 AM EDT [facility] ([facility]) Surgeries/Procedures Procedure Description Date Indications Data Source(s) OFFICE OUTPATIENT NEW 45 MINUTES 03/19/2021 12:00:00 A M EDT [facility] ([facility]) OFFICE OUTPATIENT VISIT 15 MINUTES 03/11/2021 12:00:00 AM EDT [facility] ([facility]) Needle electromyography, each extremity, with related paraspinal areas, when performed, done with nerve conduction, amplitude and latency/velocity study; complete, five or more muscles studied, innervated by three or more nerves or four or more spinal levels (list separately in addition to the code for primary procedure). 02/12/2021 12:00:00 AM EDT MEDEN T ([facility]) [id number] Nerve conduction studies 13 or more studies NEW 201202/12/2021 12:00:00 AM EDT [facility] ([facility]) OFFICE OUTPATIENT NEW 45 MINUTES 02/12/2021 12:00:00 A M EDT [facility] ([facility]) RADEX SPINE CRV COMPL W/OBLQ&FLEX&/XTN STDS 12/10/2020 12:00:00 AM EDT [facility] ([facility]) OFFICE OUTPATIENT NEW 30 MINUTES 12/10/2020 12:00:00 A M EDT [facility] ([facility]) Results ID Date Data Source [id number] 05/11/2021 09:10:00 AM EST [facility] Name Value Range Interpretation Code Description Data Jacquelyn rce(s) Supporting Document(s) SARS-CoV-2 (COVID-19) RNA [Presence] in Respiratory specimen by JUAN ALBERTO with probe detection Not Detected [facility] This lab was ordered by [facility] and reported by [facility]. ID Date Data Source [id number] 04/09/2021 03:49:[address] [facility] Name Value Range Interpretation Code Description Data Jacquelyn rce(s) Supporting Document(s) Progress Note [facility] [id number] [facility] [file] DQo= ID Date Data Source [id number] 04/16/2021 04:47:[address] [facility] CYTOPATHOLOGY REPORT See Addendum BelowN swati: NU LEEMARIUM: [id number] Number: [id number] Date: 04/09/2021 15:44Received Date: 04/11/2021 09:33Physician(s): RENETTA DUPREE,RENETTA CAZARES LM Specimen(s) ReceivedA: ThinPrep Pap Test with Image Review with full manual rescreen. HR HPVcotesting and reflex to 16/18 HPV genotyping regardless of Pap results ifHPV is positive.Date of Last Menstrual Period: 03/24/2021Menstrual History:CyclingPrior Pap Diagnosis History:History of Previous Pap not availableClinical Findings:Source: Cervical /[id number] ICD Code, Encounter for routine gynecological examination with Papsmear of umpxylO57.4 ICD Code (Screening for cervical cancer)ADEQUACY OF THE SPECIMEN:Satisfactory for evaluation. Transformation zone component identified.GENERAL CATEGORIZATIONNegative for intraepithelial lesion or malignancy.INTERPRETATION / RESULTS:Reactive changes: endocervical cells.Reactive changes: metaplastic cells.Bacterial beni suggestive of Bacterial vaginosisHyperkeratosis. Reviewing [employer]: JORDAN Mohamud (ASCP)Lola Sierar MD The attending pathologist named above attests that he/she has personallyreviewed the relevant preparation(s) for the specimen(s) and rendered thefinal diagnosis. Procedures/AddendaHR HPV Aptima Addendum Date Complete: 04/16/2021 Date Reported: 04/16/2021 08:04 HPV High Risk E6/E7 mRNASpecimen DescriptionThin prep vial ayyves5604/11/2021 09:33Special ChipdegKrrl64/28/2021 09:33Culture/ResultsNEGATIVE for HPV high-ris k types by senior oracle dba-mediated amplification.Thistest detects HPV types 16,18,31,33,35,39,45,51,52,56,58,59,66, and 68withoutdifferentiation. LIMITATIONS Detection of high-risk HPV mRNA isdependenton the number of copies present in the specimen and may be affected byspecimenadequacy, stage of infection, and presence of interfering substances.Prevalance may also affect performance as positive predictive valuesdecrease inlow prevalance populations and when testing individuals with no risk ofinfection. The performance of this assay has not been evaluated in HPVvaccinated individuals. Cross- reactivity with low-risk HPV types 26, 67,70,and 82 may occur04/16/2021 08:03Report StatusFinal 08:03 Procedure Electronically Signed System Interface 04/16/2021 08:04 Name Value Range Interpretation Code Description Data Jacquelyn rce(s) Supporting Document(s) ID Date Data Source [id number] 04/11/2021 07:44:38 [facility]-Imp : NoneMicroorganism XXX Cult : 10,000 col/mlIndigenous microorganisms. Name Value Range Interpretation Code Description Data Jacquelyn rce(s) Supporting Document(s) ID Date Data Source [id number] 04/10/2021 11:53:00 [facility] XXX-Imp : NoneMicroorganism XXX Cult : Truck Hopper Mediated Amplification(TMA) is NEGATIVE for Neisseria gonorrhoeae AND NEGATIVE for Chlamydia trachomatis. Name Value Range Interpretation Code Description Data Jacquelyn rce(s) Supporting Document(s) ID Date Data Source [id number] 04/09/2021 11:27:55 PM [facility] Cmnt XXX-Imp : NoneMicroorganism XXX Cult : DNA probe assay was NEGATIVE for Trichomonas vaginalis.DNA probe was POSITIVE for Gardnerella vaginalis.DNA probe assay was NEGATIVE for Briana species. Name Value Range Interpretation Code Description Data Jacquelyn rce(s) Supporting Document(s) ID Date Data Source [id number] 04/09/2021 08:50:05 PM [facility] Name Value Range Interpretation Code Description Data Jacquelyn rce(s) Supporting Document(s) Color of Urine [facility] Clarity of Urine [facility] Specific gravity of Urine by Refractometry automated 1.010 1.003 -1.030 [facility] pH of Urine by Automated test strip 6.0 5.0-8.0 [facility] Protein [Mass/volume] in Urine by Automated test strip Neg [facility] Glucose [Mass/volume] in Urine by Automated test strip Neg [facility] Ketones [Mass/volume] in Urine by Automated test strip Neg [facility] Bilirubin.total [Presence] in Urine by Automated test strip Negative [facility] Hemoglobin [Presence] in Urine by Automated test strip Neg [facility] Leukocyte esterase [Presence] in Urine by Automated test strip Negative [facility] Nitrite [Presence] in Urine by Automated test strip Negati [facility] Leukocytes [#/area] in Urine sediment by Automated count 0 -5 [facility] Erythrocytes [#/area] in Urine sediment by Automated count 0-3 [facility] Procedure Social History No Information Vital Signs ID Date Data Source UNK Name Value Range Interpretation Code Description Data Source(s) Body height 68.5 [in_i] 68.5 [in_i] [facility] 5'8.50" Body weight 196.00 [lb_av] 196.00 [lb_av] [facility] T ([facility]) Systolic blood pressure 128 mm[Hg] 128 mm[Hg] M EDENT ([facility]) Diastolic blood pressure 72 mm[Hg] 72 mm[Hg] [facility] ([facility]) Heart rate 67 /min 67 /min [facility] Body mass index (BMI) [Ratio] 29.4 kg/m2 29.4 k g/m2 [facility] ([facility]) Body weight 88.906 kg 88.906 kg [facility] Body temperature 97.3 [degF] 97.3 [degF] [facility] ([facility]) Body height 68 [in_i] 68 [in_i] [facility] ([facility] 5'8" Body weight 186.25 [lb_av] 186.25 [lb_av] [facility] T ([facility] ) Body mass index (BMI) [Ratio] 28.3 kg/m2 28.3 k g/m2 [facility] ([facility] Body weight 186.25 [lb_av] 186.25 [lb_av] [facility] T ([facility] Body mass index (BMI) [Ratio] 28.3 kg/m2 28.3 k g/m2 [facility] ([facility] Body temperature 97.1 [degF] 97.1 [degF] [facility] ([facility] Body height 68 [in_i] 68 [in_i] [facility] ([facility] 5'8"
[2021-05-15] MEDS ORDERED: propofoL 500 MG/50 ML VIAL As Ordered ONE (06:48)
[2021-05-15] MEDS ORDERED: LIDOCAINE 2% 100MG/5ML SDV (FOR ANES.) As Ordered ONE (06:49)
[2021-05-15] MEDS ORDERED: fentaNYL 100 MCG/2 ML INJECTION (J3010) As Ordered ONE (06:49)
--- NOTE | 2021-05-15 07:48 | ROOR ---
Patient Name: Natalia Temple Procedure Date: 05/15/2021 7:31 AM Date of : 1980 Age: 40 Room: [facility] Gender: Female Note Status: Finalized Procedure: Upper Endoscopy + Biopsies Indications: Heartburn, Exclusion of Howard's esophagus Providers: Jose Porter MD Referring MD: NICHOLAS ALMEIDA MD Requesting Provider: Medicines: Monitored Anesthesia Care Complications: No immediate complications. Procedure: Pre-Anesthesia Assessment: - The heart rate, respiratory rate, oxygen saturations, blood pressure, adequacy of pulmonary ventilation, and response to care were monitored throughout the procedure. The Endoscope was introduced through the mouth, and advanced to the second part of duodenum. The upper GI endoscopy was accomplished without difficulty. The patient tolerated the procedure well. Findings: The Z-line was regular and was found 40 cm from the incisors. Multiple biopsies were obtained with cold forceps for evaluation to rule out Howard's Esophagus randomly at the gastroesophageal junction. A small hiatal hernia was present. Localized mildly erythematous mucosa without bleeding was found in the gastric antrum. Biopsies were taken with a cold forceps for Helicobacter pylori testing. The exam of the duodenum was otherwise normal. Impression: - Z-line regular, 40 cm from the incisors. - Small hiatal hernia. - Erythematous mucosa in the antrum. Biopsied. - Multiple biopsies were obtained at the gastroesophageal junction. - The examination was otherwise normal. Recommendation: - Patient has a contact number available for emergencies. The signs and symptoms of potential delayed complications were discussed with the patient. Return to normal activities tomorrow. Written discharge instructions were provided to the patient. - High fiber diet. - Discharge patient to home. - Follow an antireflux regimen. - Continue present medications. - Await pathology results. - Telephone GI clinic for pathology results in 1 week. - Return to referring physician. - The findings and recommendations were discussed with the patient. Procedure Code(s): --- Professional --- 04951, Esophagogastroduodenoscopy, flexible, transoral; with biopsy, single or multiple Diagnosis Code(s): --- Professional --- K44.9, Diaphragmatic hernia without obstruction or gangrene K31.89, Other diseases of stomach and duodenum R12, Heartburn CPT copyright 2019 [employer]. All rights reserved. The codes documented in this report are preliminary and upon spine supervisor review may be revised to meet current compliance requirements. Jose Porter MD Jose Porter MD 05/15/2021 7:48:12 AM Electronically signed by Jose Porter MD Number of Addenda: 0 Note Initiated On: 05/15/2021 7:31 AM Estimated Blood Loss: Estimated blood loss: none.
--- NOTE | 2021-05-15 08:02 | ROOR ---
Patient Name: Natalia Temple Procedure Date: 05/15/2021 7:35 AM Date of : 1980 Age: 40 Room: [facility] Gender: Female Note Status: Finalized Procedure: Total Colonoscopy to Cecum + ileoscopy Indications: Rectal bleeding Providers: Jose Porter MD Referring MD: NICHOLAS ALMEIDA MD Requesting Provider: Medicines: Monitored Anesthesia Care Complications: No immediate complications. Procedure: Pre-Anesthesia Assessment: - The heart rate, respiratory rate, oxygen saturations, blood pressure, adequacy of pulmonary ventilation, and response to care were monitored throughout the procedure. The Colonoscope was introduced through the anus and advanced to the terminal ileum, with identification of the appendiceal orifice and IC valve. The colonoscopy was performed without difficulty. The patient tolerated the procedure well. The quality of the bowel preparation was excellent. Findings: The perianal and digital rectal examinations were normal. Non-bleeding internal hemorrhoids were found during retroflexion. The hemorrhoids were mild and Grade I (internal hemorrhoids that do not prolapse). No other significant abnormalities were identified in a careful examination of the remainder of the colon. The entire examined colon appeared normal on direct and retroflexion views. The terminal ileum appeared normal. Impression: - Non-bleeding internal hemorrhoids. - The entire examined colon is normal on direct and retroflexion views. - The examined portion of the ileum was normal. - No specimens collected. - The exam was otherwise normal to the cecum. Recommendation: - Patient has a contact number available for emergencies. The signs and symptoms of potential delayed complications were discussed with the patient. Return to normal activities tomorrow. Written discharge instructions were provided to the patient. - High fiber diet. - Discharge patient to home. - Continue present medications. - Repeat colonoscopy in 10 years for screening purposes. - Return to referring physician. - The findings and recommendations were discussed with the patient. Procedure Code(s): --- Professional --- 24560, Colonoscopy, flexible; diagnostic, including collection of specimen(s) by brushing or washing, when performed (separate procedure) Diagnosis Code(s): --- Professional --- K64.0, First degree hemorrhoids K62.5, Hemorrhage of anus and rectum CPT copyright 2019 [employer]. All rights reserved. The codes documented in this report are preliminary and upon auditing coder review may be revised to meet current compliance requirements. Jose Porter MD Jose Porter MD 05/15/2021 8:01:55 AM Electronically signed by Jose Porter MD Number of Addenda: 0 Note Initiated On: 05/15/2021 7:35 AM Estimated Blood Loss: Estimated blood loss: none.
[2021-05-15 08:18] VITALS: BP 115/74
== END 2021-05-15 08:20 | disposition home or self-care (01) ==
LOC: M OPP 06:30
PROVIDERS: ATTEND Internal Medicine Gastroenterology
DX: K62.5 Hemorrhage of anus and rectum (principal); K64.0 First degree hemorrhoids; K44.9 Diaphragmatic hernia without obstruction or gangrene; K31.89 Other diseases of stomach and duodenum; R12 Heartburn; Z79.899 Other long term (current) drug therapy; Z87.891 Personal history of nicotine dependence
CPT/HCPCS: 43239; 45378; 88305; J3010

== ENCOUNTER → 2021-12-02 | Outpatient (CLI) | payer OTHER ==
[~2021-12-02] MED LIST changes: -NS 1,000 ML IV ONE; -OMEP-221 PO; +OMEP40CA5 PO
== END ==
LOC: M WHC 13:40
PROVIDERS: ATTEND Advanced Practice Midwife
DX: D25.9 Leiomyoma of uterus, unspecified (principal); N83.201 Unspecified ovarian cyst, right side

== ENCOUNTER → 2021-12-02 | Outpatient (CLI) | payer OTHER ==
[2021-12-02 12:29] LABS: HEMATOCRIT 45.2 % (36.0-47.0); MEAN CORPUSCULAR HEMOGLOBIN 31.4 pg (27.0-33.0); MEAN CORPUSCULAR HGB CONC 33.2 g/dl (32.0-36.5); MEAN CORPUSCULAR VOLUME 94.8 fl (80.0-96.0); PLATELET COUNT, AUTOMATED 232 10^3/uL (150-450); RED BLOOD COUNT 4.77 10^6/uL (4.00-5.40); WHITE BLOOD COUNT 6.2 10^3/uL (4.0-10.0)
[2021-12-02 12:54] LABS: HEMOGLOBIN A1c 5.5 %
[2021-12-02 13:08] LABS: ALBUMIN 3.9 GM/DL (3.2-5.2); ALT/SGPT 37 U/L (12-78); BILIRUBIN,TOTAL 0.5 MG/DL (0.2-1.0); BLOOD UREA NITROGEN 16 MG/DL (7-18); CALCIUM LEVEL 9.6 MG/DL (8.5-10.1); CARBON DIOXIDE LEVEL 27 MEQ/L (21-32); CHLORIDE LEVEL 106 MEQ/L (98-107); CHOLESTEROL LEVEL 117 MG/DL (<200); CHOLESTEROL RISK RATIO 2.853 (<5); CREATININE FOR GFR 0.69 MG/DL (0.55-1.30); GLOMERULAR FILTRATION RATE > 60.0 (>58); GLUCOSE, FASTING 102 MG/DL (70-100); HDL CHOLESTEROL 41 MG/DL (>40); LDL CHOLESTEROL 64 MG/DL (<100); NON-HDL-C 76 MG/DL; POTASSIUM SERUM 4.4 MEQ/L (3.5-5.1); SODIUM LEVEL 141 MEQ/L (136-145); TOTAL PROTEIN 7.1 GM/DL (6.4-8.2); TRIGLYCERIDES LEVEL 60 MG/DL (<150)
[2021-12-02 13:09] LABS: TOTAL 25(OH) VITAMIN D 115.2 NG/ML (30.0-100.0)
== END ==
LOC: M LAB 11:59
PROVIDERS: ATTEND Family Medicine
DX: I10 Essential (primary) hypertension (principal); R53.83 Other fatigue; E03.9 Hypothyroidism, unspecified

== ENCOUNTER → 2022-01-06 | Outpatient (CLI) | payer OTHER | LOC: M WHC 13:04 | PROVIDERS: ATTEND Family Medicine | DX: Z12.31 Encounter for screening mammogram for malignant neoplasm of breast (principal); R92.8 Other abnormal and inconclusive findings on diagnostic imaging of breast ==

== ENCOUNTER → 2022-01-29 | Outpatient (CLI) | payer OTHER | LOC: M WHC 13:16 | PROVIDERS: ATTEND Family Medicine | DX: N63.10 Unspecified lump in the right breast, unspecified quadrant (principal) ==

== ENCOUNTER → 2022-03-10 | Outpatient (CLI) | payer OTHER | LOC: M RAD 12:03 | PROVIDERS: ATTEND Family Medicine | DX: M25.562 Pain in left knee (principal) ==

== ENCOUNTER → 2022-03-10 | Outpatient (CLI) | payer OTHER | LOC: M RAD 10:43 | PROVIDERS: ATTEND Family Medicine | DX: M79.662 Pain in left lower leg (principal) ==

== ENCOUNTER → 2022-04-07 | Outpatient (CLI) | payer OTHER | LOC: M WHC 10:34 | PROVIDERS: ATTEND Advanced Practice Midwife | DX: D25.1 Intramural leiomyoma of uterus (principal); N83.201 Unspecified ovarian cyst, right side ==

== ENCOUNTER → 2022-08-05 | Outpatient (CLI) | payer OTHER ==
[2022-08-05 15:17] LABS: HEMATOCRIT 44.1 % (36.0-47.0); HEMOGLOBIN 14.5 g/dl (12.0-15.5); MEAN CORPUSCULAR HEMOGLOBIN 31.3 pg (27.0-33.0); MEAN CORPUSCULAR HGB CONC 32.9 g/dl (32.0-36.5); PLATELET COUNT, AUTOMATED 253 10^3/uL (150-450); RED BLOOD COUNT 4.64 10^6/uL (4.00-5.40); WHITE BLOOD COUNT 6.4 10^3/uL (4.0-10.0)
[2022-08-05 15:22] LABS: APPEARANCE, URINE CLEAR (CLEAR); BACTERIA, URINE AUTO NEGATIVE (NEGATIVE); BILIRUBIN, URINE AUTO NEGATIVE (NEGATIVE); BLOOD, URINE BLOOD 3+ (NEGATIVE); COLOR, URINE STRAW (YELLOW); GLUCOSE, URINE (UA) AUTO NEGATIVE (NEGATIVE); KETONE, URINE AUTO NEGATIVE (NEGATIVE); LEUKOCYTE ESTERASE, URINE AUTO NEGATIVE (NEGATIVE); NITRITE, URINE AUTO NEGATIVE (NEGATIVE); PROTEIN, URINE AUTO NEGATIVE (NEGATIVE); RBC, URINE AUTO 0 /HPF (0-3); SQUAMOUS EPITHELIAL CELL UR AU 0 /HPF (0-6); UROBILINOGEN, URINE AUTO 0.2 mg/dL (0.0-2.0); WBC, URINE AUTO 0 /HPF (0-3)
[2022-08-05 17:14] LABS: ALBUMIN 3.8 G/DL (3.2-5.2); ALKALINE PHOSPHATASE 43 U/L (46-116); ALT/SGPT 22 U/L (7.0-40); AST/SGOT 15 U/L (<34); BILIRUBIN,TOTAL 0.6 MG/DL (0.3-1.2); BLOOD UREA NITROGEN 16 MG/DL (9-23); CALCIUM LEVEL 8.8 MG/DL (8.5-10.1); CARBON DIOXIDE LEVEL 28 MMOL/L (20-31); CHLORIDE LEVEL 103 MMOL/L (98-107); GLUCOSE, FASTING 87 MG/DL (60-100); POTASSIUM SERUM 4.4 MMOL/L (3.5-5.1); SODIUM LEVEL 137 MMOL/L (136-145); THYROID STIMULATING HORMONE 1.105 uIU/ML (0.55-4.78); TOTAL PROTEIN 6.8 G/DL (5.7-8.2)
[2022-08-05 20:39] LABS: CREATININE FOR GFR 0.67 MG/DL (0.55-1.30); GLOMERULAR FILTRATION RATE > 60.0 (>58)
== END ==
LOC: M LAB 14:26
PROVIDERS: ATTEND Family Medicine
DX: N39.0 Urinary tract infection, site not specified (principal); R10.9 Unspecified abdominal pain

== ENCOUNTER → 2022-08-22 | Outpatient (CLI) | payer OTHER | LOC: M RAD 06:56 | PROVIDERS: ATTEND Family Medicine | DX: R10.31 Right lower quadrant pain (principal) ==

== ENCOUNTER → 2023-02-02 | Outpatient (CLI) | payer OTHER ==
[2023-02-02 11:11] LABS: HEMOGLOBIN 13.9 g/dl (12.0-15.5); MEAN CORPUSCULAR HEMOGLOBIN 32.3 pg (27.0-33.0); MEAN CORPUSCULAR HGB CONC 33.1 g/dl (32.0-36.5); MEAN CORPUSCULAR VOLUME 97.7 fl (80.0-96.0); PLATELET COUNT, AUTOMATED 217 10^3/uL (150-450); WHITE BLOOD COUNT 5.4 10^3/uL (4.0-10.0)
[2023-02-02 11:37] LABS: IRON (FE) 102 UG/DL (50-170); PERCENT SATURATION 32.1 % (13.2-45.0); TOTAL IRON BINDING CAPACITY 318 UG/DL (250-425)
[2023-02-02 11:40] LABS: ALBUMIN 3.7 G/DL (3.2-5.2); ALKALINE PHOSPHATASE 45 U/L (46-116); ALT/SGPT 26 U/L (7.0-40); AST/SGOT 11 U/L (<34); BILIRUBIN,TOTAL 0.4 MG/DL (0.3-1.2); BLOOD UREA NITROGEN 18 MG/DL (9-23); CALCIUM LEVEL 8.8 MG/DL (8.5-10.1); CARBON DIOXIDE LEVEL 28 MMOL/L (20-31); CHLORIDE LEVEL 106 MMOL/L (98-107); CHOLESTEROL LEVEL 116 MG/DL (<200); CHOLESTEROL RISK RATIO 2.51 (<5); CREATININE FOR GFR 0.73 MG/DL (0.55-1.30); GLOMERULAR FILTRATION RATE > 60.0 (>58); GLUCOSE, FASTING 98 MG/DL (60-100); HDL CHOLESTEROL 46.1 MG/DL (>40); LDL CHOLESTEROL 53.5 MG/DL (<100); NON-HDL-C 69.9 MG/DL; POTASSIUM SERUM 4.4 MMOL/L (3.5-5.1); SODIUM LEVEL 136 MMOL/L (136-145); TOTAL 25(OH) VITAMIN D 42.6 NG/ML (20.0-100.0); TOTAL PROTEIN 6.6 G/DL (5.7-8.2); TRIGLYCERIDES LEVEL 82 MG/DL (<150)
[2023-02-02 13:15] LABS: HEMOGLOBIN A1c 4.9 % (4.0-6.0)
== END ==
LOC: M LAB 10:13
PROVIDERS: ATTEND Family Medicine
DX: I10 Essential (primary) hypertension (principal); D64.9 Anemia, unspecified; R53.83 Other fatigue

== ENCOUNTER → 2023-03-31 | Outpatient (CLI) | payer OTHER | LOC: M WHC 10:09 | PROVIDERS: ATTEND Family Medicine | DX: Z12.31 Encounter for screening mammogram for malignant neoplasm of breast (principal) ==

== ENCOUNTER → 2023-06-02 | Outpatient (CLI) | payer OTHER ==
[2023-06-02 16:14] LABS: ESTRADIOL 34.4 PG/ML
[2023-06-02 16:27] LABS: FOLLICLE STIMULATING HORMONE 9.2 mIU/ML
== END ==
LOC: M LAB 15:09
PROVIDERS: ATTEND Advanced Practice Midwife
DX: N91.2 Amenorrhea, unspecified (principal)

== ENCOUNTER → 2023-10-12 | Outpatient (CLI) | payer OTHER ==
[2023-10-12 14:33] LABS: APPEARANCE, URINE CLEAR (CLEAR); BACTERIA, URINE AUTO NEGATIVE (NEGATIVE); BILIRUBIN, URINE AUTO NEGATIVE (NEGATIVE); BLOOD, URINE BLOOD NEGATIVE (NEGATIVE); COLOR, URINE YELLOW (YELLOW); GLUCOSE, URINE (UA) AUTO NEGATIVE (NEGATIVE); KETONE, URINE AUTO NEGATIVE (NEGATIVE); LEUKOCYTE ESTERASE, URINE AUTO NEGATIVE (NEGATIVE); NITRITE, URINE AUTO NEGATIVE (NEGATIVE); PROTEIN, URINE AUTO NEGATIVE (NEGATIVE); RBC, URINE AUTO 1 /HPF (0-3); SPECIFIC GRAVITY URINE AUTO 1.014 (1.002-1.035); SQUAMOUS EPITHELIAL CELL UR AU 1 /HPF (0-6); UROBILINOGEN, URINE AUTO 0.2 mg/dL (0.0-2.0); WBC, URINE AUTO 0 /HPF (0-3)
[2023-10-12 14:36] LABS: HEMATOCRIT 42.1 % (36.0-47.0); HEMOGLOBIN 14.4 g/dl (12.0-15.5); MEAN CORPUSCULAR HEMOGLOBIN 32.4 pg (27.0-33.0); MEAN CORPUSCULAR HGB CONC 34.2 g/dl (32.0-36.5); MEAN CORPUSCULAR VOLUME 94.6 fl (80.0-96.0); PLATELET COUNT, AUTOMATED 217 10^3/uL (150-450); RED BLOOD COUNT 4.45 10^6/uL (4.00-5.40); WHITE BLOOD COUNT 5.8 10^3/uL (4.0-10.0)
[2023-10-12 15:02] LABS: ALBUMIN 3.7 G/DL (3.2-5.2); ALKALINE PHOSPHATASE 41 U/L (46-116); ALT/SGPT 50 U/L (7.0-40); AST/SGOT 31 U/L (<34); BILIRUBIN,TOTAL 0.6 MG/DL (0.3-1.2); BLOOD UREA NITROGEN 12 MG/DL (9-23); CALCIUM LEVEL 9.4 MG/DL (8.5-10.1); CARBON DIOXIDE LEVEL 29 MMOL/L (20-31); CHLORIDE LEVEL 105 MMOL/L (98-107); CHOLESTEROL LEVEL 107 MG/DL (<200); CHOLESTEROL RISK RATIO 2.86 (<5); CREATININE FOR GFR 0.67 MG/DL (0.55-1.30); GLOMERULAR FILTRATION RATE > 60.0 (>58); GLUCOSE, FASTING 92 MG/DL (60-100); HDL CHOLESTEROL 37.3 MG/DL (>40); LDL CHOLESTEROL 54.7 MG/DL (<100); NON-HDL-C 69.7 MG/DL; POTASSIUM SERUM 4.2 MMOL/L (3.5-5.1); SODIUM LEVEL 140 MMOL/L (136-145); TOTAL PROTEIN 6.8 G/DL (5.7-8.2); TRIGLYCERIDES LEVEL 75 MG/DL (<150)
[2023-10-12 15:04] LABS: TOTAL 25(OH) VITAMIN D 40.2 NG/ML (20.0-100.0)
[2023-10-12 15:05] LABS: THYROID STIMULATING HORMONE 1.076 uIU/ML (0.55-4.78)
[2023-10-12 15:06] LABS: HEMOGLOBIN A1c 5.2 % (4.0-6.0)
== END ==
LOC: M LAB 13:45
PROVIDERS: ATTEND Family Medicine
DX: I10 Essential (primary) hypertension (principal); R53.83 Other fatigue; E03.8 Other specified hypothyroidism

== ENCOUNTER → 2024-02-29 | Outpatient (REF) | payer OTHER ==
[2024-02-29 18:36] LABS: AMORPHOUS SEDIMENT SMALL (NEGATIVE); APPEARANCE, URINE TURBID (CLEAR); BACTERIA, URINE AUTO NEGATIVE (NEGATIVE); BILIRUBIN, URINE AUTO NEGATIVE (NEGATIVE); BLOOD, URINE BLOOD 1+ (NEGATIVE); COLOR, URINE YELLOW (YELLOW); GLUCOSE, URINE (UA) AUTO NEGATIVE (NEGATIVE); KETONE, URINE AUTO NEGATIVE (NEGATIVE); LEUKOCYTE ESTERASE, URINE AUTO NEGATIVE (NEGATIVE); NITRITE, URINE AUTO NEGATIVE (NEGATIVE); PROTEIN, URINE AUTO NEGATIVE (NEGATIVE); RBC, URINE AUTO 2 /HPF (0-3); SPECIFIC GRAVITY URINE AUTO 1.021 (1.002-1.035); SQUAMOUS EPITHELIAL CELL UR AU 3 /HPF (0-6); UROBILINOGEN, URINE AUTO 0.2 mg/dL (0.0-2.0); WBC, URINE AUTO 0 /HPF (0-3)
== END ==
LOC: M SMT 17:50
PROVIDERS: ATTEND Nurse Practitioner Family
DX: R39.89 Other symptoms and signs involving the genitourinary system (principal)

== ENCOUNTER → 2024-05-30 | Outpatient (CLI) | payer OTHER | LOC: M WHC 13:54 | PROVIDERS: ATTEND Family Medicine | DX: Z12.31 Encounter for screening mammogram for malignant neoplasm of breast (principal) ==

== ENCOUNTER → 2024-06-27 | Outpatient (CLI) | payer OTHER ==
[2024-06-27 12:40] LABS: HEMOGLOBIN A1c 5.3 % (4.0-6.0)
[2024-06-27 12:43] LABS: HEMATOCRIT 43.4 % (36.0-47.0); HEMOGLOBIN 14.6 g/dl (12.0-15.5); MEAN CORPUSCULAR HEMOGLOBIN 31.4 pg (27.0-33.0); MEAN CORPUSCULAR HGB CONC 33.6 g/dl (32.0-36.5); MEAN CORPUSCULAR VOLUME 93.3 fl (80.0-96.0); PLATELET COUNT, AUTOMATED 273 10^3/uL (150-450); RED BLOOD COUNT 4.65 10^6/uL (4.00-5.40); WHITE BLOOD COUNT 6.3 10^3/uL (4.0-10.0)
[2024-06-27 13:01] LABS: ALBUMIN 4.1 G/DL (3.2-5.2); ALKALINE PHOSPHATASE 40 U/L (35-104); ALT/SGPT 28 U/L (7.0-40); AST/SGOT 16 U/L (<34); BILIRUBIN,TOTAL 0.6 MG/DL (0.3-1.2); BLOOD UREA NITROGEN 17 MG/DL (9-23); CALCIUM LEVEL 8.8 MG/DL (8.5-10.1); CARBON DIOXIDE LEVEL 27 MMOL/L (20-31); CHLORIDE LEVEL 105 MMOL/L (98-107); CHOLESTEROL LEVEL 122 MG/DL (<200); CHOLESTEROL RISK RATIO 3.08 (<5); GLOMERULAR FILTRATION RATE > 60.0 (>58); GLUCOSE, FASTING 96 MG/DL (60-100); HDL CHOLESTEROL 39.6 MG/DL (>40); LDL CHOLESTEROL 69.4 MG/DL (<100); NON-HDL-C 82.4 MG/DL; POTASSIUM SERUM 4.4 MMOL/L (3.5-5.1); SODIUM LEVEL 140 MMOL/L (136-145); TRIGLYCERIDES LEVEL 65 MG/DL (<150)
[2024-06-27 13:02] LABS: THYROID STIMULATING HORMONE 1.327 uIU/ML (0.55-4.78); TOTAL 25(OH) VITAMIN D 43.8 NG/ML (20.0-100.0)
== END ==
LOC: M LAB 11:43
PROVIDERS: ATTEND Family Medicine
DX: D64.9 Anemia, unspecified (principal); R53.83 Other fatigue; E03.9 Hypothyroidism, unspecified

== ENCOUNTER → 2024-10-30 | Outpatient (CLI) | payer OTHER ==
[2024-10-30 16:03] LABS: HEMATOCRIT 43.4 % (36.0-47.0); HEMOGLOBIN 14.7 g/dl (12.0-15.5); MEAN CORPUSCULAR HEMOGLOBIN 31.5 pg (27.0-33.0); MEAN CORPUSCULAR HGB CONC 33.9 g/dl (32.0-36.5); MEAN CORPUSCULAR VOLUME 93.1 fl (80.0-96.0); PLATELET COUNT, AUTOMATED 217 10^3/uL (150-450); RED BLOOD COUNT 4.66 10^6/uL (4.00-5.40); WHITE BLOOD COUNT 6.4 10^3/uL (4.0-10.0)
[2024-10-30 16:22] LABS: HEMOGLOBIN A1c 5.3 % (4.0-6.0)
[2024-10-30 16:35] LABS: ALBUMIN 4.3 G/DL (3.2-5.2); ALKALINE PHOSPHATASE 41 U/L (35-104); ALT/SGPT 22 U/L (7.0-40); AST/SGOT 16 U/L (<34); BILIRUBIN,TOTAL 0.7 MG/DL (0.3-1.2); BLOOD UREA NITROGEN 17 MG/DL (9-23); CALCIUM LEVEL 9.3 MG/DL (8.5-10.1); CARBON DIOXIDE LEVEL 29 MMOL/L (20-31); CHLORIDE LEVEL 101 MMOL/L (98-107); CHOLESTEROL LEVEL 132 MG/DL (<200); CHOLESTEROL RISK RATIO 2.93 (<5); CREATININE FOR GFR 0.71 MG/DL (0.55-1.30); GLOMERULAR FILTRATION RATE > 90.0 (>58); GLUCOSE, FASTING 83 MG/DL (60-100); HDL CHOLESTEROL 44.9 MG/DL (>40); LDL CHOLESTEROL 74.1 MG/DL (<100); NON-HDL-C 87.1 MG/DL; POTASSIUM SERUM 4.6 MMOL/L (3.5-5.1); SODIUM LEVEL 140 MMOL/L (136-145); TOTAL PROTEIN 7.2 G/DL (5.7-8.2); TRIGLYCERIDES LEVEL 65 MG/DL (<150)
[2024-10-30 16:37] LABS: THYROID STIMULATING HORMONE 0.686 uIU/ML (0.55-4.78); TOTAL 25(OH) VITAMIN D 39.1 NG/ML (20.0-100.0)
== END ==
LOC: M RAD 15:06
PROVIDERS: ATTEND Family Medicine
DX: D64.9 Anemia, unspecified (principal); R53.83 Other fatigue; E03.9 Hypothyroidism, unspecified

== ENCOUNTER → 2025-03-27 | Outpatient (CLI) | payer OTHER ==
[2025-03-27 16:11] LABS: CALCIUM LEVEL 9.1 MG/DL (8.5-10.1); CARBON DIOXIDE LEVEL 30 MMOL/L (20-31); CHLORIDE LEVEL 102 MMOL/L (98-107); CREATININE FOR GFR 0.67 MG/DL (0.55-1.30); GLOMERULAR FILTRATION RATE > 90.0 (>58); POTASSIUM SERUM 4.2 MMOL/L (3.5-5.1); SODIUM LEVEL 141 MMOL/L (136-145)
== END ==
LOC: M LAB 15:15
PROVIDERS: ATTEND Nurse Practitioner Family
DX: I10 Essential (primary) hypertension (principal)

== ENCOUNTER → 2025-04-01 | Outpatient (CLI) | payer OTHER ==
[2025-04-01 10:52] LABS: BASO # 0.0 10^3/uL (0.0-0.2); BASO % 0.6 % (0.0-1.0); EOS # 0.2 10^3/uL (0.0-0.5); EOS % 2.6 % (0.0-3.0); LYMPH # 1.7 10^3/uL (1.5-5.0); LYMPH % 24.5 % (24.0-44.0); MONO # 0.7 10^3/uL (0.0-0.8); MONO % 9.8 % (2.0-8.0); NEUTROPHILS # 4.1 10^3/uL (1.5-8.5); NEUTROPHILS % 60.0 % (36.0-66.0); PLATELET COUNT, AUTOMATED 214 10^3/uL (150-450)
[2025-04-01 11:19] LABS: ALT/SGPT 44 U/L (7.0-40); AST/SGOT 27 U/L (<34); CALCIUM LEVEL 9.4 MG/DL (8.5-10.1); CARBON DIOXIDE LEVEL 29 MMOL/L (20-31); CHLORIDE LEVEL 101 MMOL/L (98-107); CHOLESTEROL LEVEL 147 MG/DL (<200); CHOLESTEROL RISK RATIO 3.22 (<5); CREATININE FOR GFR 0.67 MG/DL (0.55-1.30); GLOMERULAR FILTRATION RATE > 90.0 (>58); LDL CHOLESTEROL 77.2 MG/DL (<100); NON-HDL-C 101.4 MG/DL; POTASSIUM SERUM 4.3 MMOL/L (3.5-5.1); SODIUM LEVEL 140 MMOL/L (136-145); TRIGLYCERIDES LEVEL 121 MG/DL (<150)
== END ==
LOC: M LAB 10:08
PROVIDERS: ATTEND Nurse Practitioner Family
DX: I10 Essential (primary) hypertension (principal); E78.2 Mixed hyperlipidemia

== ENCOUNTER → 2025-06-12 | Outpatient (CLI) | payer OTHER | LOC: M WHC 12:59 | PROVIDERS: ATTEND Advanced Practice Midwife | DX: D21.9 Benign neoplasm of connective and other soft tissue, unspecified (principal); N83.202 Unspecified ovarian cyst, left side; N83.201 Unspecified ovarian cyst, right side; Z12.31 Encounter for screening mammogram for malignant neoplasm of breast; R92.333 Mammographic heterogeneous density, bilateral breasts ==

== ENCOUNTER → 2025-06-12 | Outpatient (CLI) | payer OTHER | LOC: M WHC 13:00 | PROVIDERS: ATTEND Nurse Practitioner Family | DX: Z12.31 Encounter for screening mammogram for malignant neoplasm of breast (principal); R92.333 Mammographic heterogeneous density, bilateral breasts ==